=== PATIENT | female | born 1975 | race African-American/Black ===

== ENCOUNTER 2020-03-14 11:39 | Emergency (ER) | payer MEDICARE, MEDICAID ==
[~2020-03-14] VITALS: Ht 160 cm; Wt 90.0 kg
[2020-03-14] MEDS ORDERED: SODIUM CHLORIDE 0.9% 1,000 ML IV ONE (12:41)
[2020-03-14 12:56] LABS: BASOPHILS % 0.8 % (0.0-2.0); EOSINOPHILS % 0.8 % (0.0-5.0); HEMATOCRIT. 36.8 % (36.0-48.0); HEMOGLOBIN. 12.7 g/dL (12.0-16.0); MEAN CORPUSCULAR HEMOGLOBIN 31.6 pg (28.0-32.0); MEAN PLATELET VOLUME 8.9 fl (7.4-10.4); MONOCYTES % 10.5 % (2.0-8.0); NEUTROPHILS % 38.9 % (40.0-76.0); PLATELET 241 x1000/uL (130-400); RED BLOOD CELL COUNT 4.01 mill/uL (4.2-5.4); RED CELL DISTRIBUTION WIDTH 14.1 % (11.6-14.6)
[2020-03-14 13:04] LABS: CHLORIDE 105 mEq/L (98-107)
[2020-03-14 13:09] LABS: ETHANOL BLOOD < 10 mg/dL
[2020-03-14 13:12] LABS: HCG SCREEN NEGATIVE
[2020-03-14 13:32] LABS: *AMPHETAMINES SCREEN URINE NEGATIVE (NEGATIVE); *BARBITURATES SCREEN URINE NEGATIVE (NEGATIVE); *BENZODIAZEPINES SCREEN URINE NEGATIVE (NEGATIVE); *COCAINE SCREEN URINE NEGATIVE (NEGATIVE); METHADONE URINE SCREEN NEGATIVE (NEGATIVE)
[2020-03-14 13:33] LABS: CANNABINOID URINE SCREEN NEGATIVE (NEGATIVE); PHENCYCLIDINE URINE SCREEN NEGATIVE (NEGATIVE)
[2020-03-14 13:41] LABS: OPIATES URINE SCREEN NEGATIVE (NEGATIVE)
[2020-03-14] MEDS ORDERED: MECLIZINE 25MG TABLET PO ONE (14:15)
[2020-03-14] MEDS ORDERED: ONDANSETRON HCL 4MG/2ML INJ IV ONE (14:15)
[2020-03-14 15:56] VITALS: BP 140/67
== END 2020-03-14 15:56 | disposition home or self-care (01) ==
LOC: ER 11:39
DX: R42 Dizziness and giddiness (principal); I10 Essential (primary) hypertension; R11.0 Nausea; Z90.49 Acquired absence of other specified parts of digestive tract
CPT/HCPCS: 36415; 70450; 71045; 80053; 80305; 80320; 81025; 83690; 83880; 84484; 84703; 85025; 93005; 96360; 99285; J7030; J8597; G0480

== ENCOUNTER 2020-08-12 12:14 | Emergency (ER) | payer MEDICARE, MEDICAID ==
[~2020-08-12] VITALS: Ht 160 cm; Wt 87.0 kg
[2020-08-12] MEDS ORDERED: IBUP-2029 PO (12:51)
[2020-08-12] MEDS ORDERED: IBUPROFEN 600MG TABLET PO ONE (13:00)
[2020-08-12 13:25] VITALS: BP 165/97
== END 2020-08-12 13:29 | disposition home or self-care (01) ==
LOC: ER 13:12
DX: M54.5 Low back pain (principal); V49.49XA Driver injured in collision with other motor vehicles in traffic accident, initial encounter; Y93.89 Activity, other specified; Y92.488 Other paved roadways as the place of occurrence of the external cause; R03.0 Elevated blood-pressure reading, without diagnosis of hypertension; Z86.59 Personal history of other mental and behavioral disorders
CPT/HCPCS: 99282

== ENCOUNTER 2020-10-27 13:20 | Emergency (ER) | payer MEDICARE, MEDICAID ==
[~2020-10-27] VITALS: Ht 160 cm; Wt 85.0 kg
[~2020-10-27 13:20] MED LIST: IBUP-2029 PO
[2020-10-27 14:55] LABS: BASOPHILS % 0.8 % (0.0-2.0); EOSINOPHILS % 2.6 % (0.0-5.0); HEMATOCRIT. 35.8 % (36.0-48.0); HEMOGLOBIN. 11.9 g/dL (12.0-16.0); LYMPHOCYTES % 43.4 % (20.0-50.0); MEAN CORPUSCULAR HEMOGLOBIN 31.3 pg (28.0-32.0); MEAN CORPUSCULAR VOLUME 94.4 fL (81.0-99.0); MEAN PLATELET VOLUME 9.3 fl (7.4-10.4); MONOCYTES % 8.7 % (2.0-8.0); NEUTROPHILS % 44.5 % (40.0-76.0); PLATELET 118 x1000/uL (130-400); RED CELL DISTRIBUTION WIDTH 14.1 % (11.6-14.6)
[2020-10-27 14:58] LABS: CHLORIDE 107 mEq/L (98-107)
[2020-10-27 15:02] LABS: INR 1.2; PROTHROMBIN TIME 12.4 sec (9.6-11.0)
[2020-10-27 15:05] LABS: CLARITY URINE CLEAR (CLEAR); COLOR URINE YELLOW (YELLOW); KETONES URINE NEGATIVE (NEGATIVE); LEUKOCYTE ESTERASE URINE NEGATIVE (NEGATIVE); NITRITE URINE NEGATIVE (NEGATIVE); OCCULT BLOOD URINE NEGATIVE (NEGATIVE); PH URINE 7.5 (4.5-8.0); PROTEIN URINE NEGATIVE (NEGATIVE); SPECIFIC GRAVITY URINE 1.022 (1.005-1.030)
[2020-10-27 15:09] LABS: HCG SCREEN NEGATIVE
[2020-10-27] MEDS ORDERED: HALOPERIDOL LACTATE 5MG/ML VIAL IM NR (15:30)
[2020-10-27] MEDS ORDERED: OMEP20TA2 MT (16:53)
[2020-10-27 17:00] VITALS: BP 124/83
[2020-10-27] MEDS ORDERED: MAGNESIUM/ALUMINUM HYDROXIDE/SIMETHICONE 30ML UDC PO ONE (17:00)
[2020-10-27] MEDS ORDERED: VISCOUS LIDOCAINE 2% 15 ML UDC PO ONE (17:00)
== END 2020-10-27 17:52 | disposition home or self-care (01) ==
LOC: ER 14:12
DX: K29.70 Gastritis, unspecified, without bleeding (principal); Z90.49 Acquired absence of other specified parts of digestive tract; Z86.59 Personal history of other mental and behavioral disorders
CPT/HCPCS: 36415; 76705; 80053; 81003; 81025; 83690; 84703; 85025; 85610; 96372; 99284; J1630; J7040

== ENCOUNTER 2023-07-04 19:15 | Emergency (ER) | payer OTHER, MEDICAID ==
[~2023-07-04] VITALS: Ht 160 cm; Wt 96.6 kg
[~2023-07-04 19:15] MED LIST changes: +OMEP20TA23 MT
[2023-07-04 19:37] VITALS: BP_DIAS 87; RESP 16; TEMP 98; O2SAT 100
[2023-07-05 00:02] LABS: BASOPHILS % 0.9 % (0.0-2.0); EOSINOPHILS % 1.4 % (0.0-5.0); HEMATOCRIT. 38.4 % (36.0-48.0); HEMOGLOBIN. 12.6 g/dL (12.0-16.0); LYMPHOCYTES % 54.6 % (20.0-50.0); MEAN CORPUSCULAR HEMOGLOBIN 31.3 pg (28.0-32.0); MEAN CORPUSCULAR HGB CONC 32.9 g/dL (31.0-37.0); MEAN CORPUSCULAR VOLUME 95.2 fL (81.0-99.0); MEAN PLATELET VOLUME 8.3 fl (7.4-10.4); MONOCYTES % 8.4 % (2.0-8.0); NEUTROPHILS % 34.7 % (40.0-76.0); PLATELET 272 x1000/uL (130-400); RED BLOOD CELL COUNT 4.03 mill/uL (4.2-5.4); WHITE BLOOD COUNT 5.9 x1000/uL (4.5-11.0)
[2023-07-05 00:22] LABS: ALANINE AMINOTRANSFERASE 14 IU/L (10-49); ALBUMIN 4.2 g/dL (3.2-4.8); ASPARTATE AMINOTRANSFERASE 20 IU/L (<34); BILIRUBIN TOTAL 0.5 mg/dL (0.1-1.0); CALCIUM 9.2 mg/dL (8.7-10.4); CARBON DIOXIDE 29 mEq/L (21-32); CHLORIDE 104 mEq/L (98-107); CREATININE 0.8 mg/dL (0.6-1.0); GLUCOSE 106 mg/dL (70-105); POTASSIUM 3.7 mEq/L (3.5-5.1); PROTEIN TOTAL 7.6 g/dL (6.0-8.3); SODIUM 139 mEq/L (136-145); UREA NITROGEN BLOOD 9 mg/dL (9-23)
[2023-07-05 00:27] LABS: HCG SCREEN NEGATIVE
[2023-07-05] MEDS ORDERED: ACET325T52 MT (02:29)
[2023-07-05 02:30] VITALS: BP_SYST 72; PULSE 138
[2023-07-05] MEDS: HYDROCODONE/ACETAMINOPHEN 5/325MG TABLET PO ONE (02:30)
== END 2023-07-05 02:43 | disposition home or self-care (01) ==
LOC: ER 19:15
DX: D25.9 Leiomyoma of uterus, unspecified (principal); N83.202 Unspecified ovarian cyst, left side; F20.9 Schizophrenia, unspecified; Z90.49 Acquired absence of other specified parts of digestive tract
CPT/HCPCS: 36415; 76830; 76856; 80053; 84703; 85025; 99284